=== PATIENT | male | born 1935 | race Caucasian/White ===

== ENCOUNTER 2019-01-18 09:50 | Emergency (ER) | payer MEDICARE, BC ==
[~2019-01-18] VITALS: Ht 195.6 cm; Wt 111.4 kg
[2019-01-18] MEDS ORDERED: CEPHALEXIN500 M1 PO (12:15)
[2019-01-18 12:18] VITALS: BP 171/94
== END 2019-01-18 12:25 | disposition home or self-care (01) ==
LOC: ED 09:50
DX: S41.112A Laceration without foreign body of left upper arm, initial encounter (principal); I10 Essential (primary) hypertension; Z23 Encounter for immunization; W26.8XXA Contact with other sharp object(s), not elsewhere classified, initial encounter; Y93.F9 Activity, other caregiving; Y92.019 Unspecified place in single-family (private) house as the place of occurrence of the external cause
CPT/HCPCS: 90714

== ENCOUNTER 2019-01-31 13:18 | Emergency (ER) | payer MEDICARE, BC ==
[~2019-01-31 13:18] MED LIST: CEPHALEXIN500 M1 PO
[2019-01-31] MEDS ORDERED: BACTRIM DS TAB1 EACH PO (13:57)
[2019-01-31 14:19] VITALS: BP 167/80
== END 2019-01-31 13:40 | disposition home or self-care (01) ==
LOC: ED 13:18
DX: Z48.02 Encounter for removal of sutures (principal)

== ENCOUNTER → 2019-06-22 | Outpatient (CLI) | payer MEDICARE, BC ==
[~2019-06-22] MED LIST changes: +BACTRIM DS TAB1 EACH PO
== END ==
LOC: RAD 15:04
DX: M19.072 Primary osteoarthritis, left ankle and foot (principal); M25.472 Effusion, left ankle; M79.89 Other specified soft tissue disorders

== ENCOUNTER → 2020-05-01 | Day surgery (SDC) | payer MEDICARE, BC | LOC: MSO 08:19 | DX: H25.812 Combined forms of age-related cataract, left eye (principal); M19.90 Unspecified osteoarthritis, unspecified site; I10 Essential (primary) hypertension; Z79.82 Long term (current) use of aspirin; Z79.899 Other long term (current) drug therapy; Z96.652 Presence of left artificial knee joint | CPT/HCPCS: 00142; J0171; J2250; V2632 ==